=== PATIENT | male | born 2000 | race Two or more races ===

== ENCOUNTER 2020-09-09 08:09 | Emergency (ER) | payer MEDICAID ==
[~2020-09-09] VITALS: Ht 160 cm; Wt 64.9 kg
[2020-09-09 08:12] VITALS: BP 146/76
--- NOTE | 2020-09-09 08:15 | NUR ---
SEEN AND EXAMINED BY
--- NOTE | 2020-09-09 08:25 | NUR ---
LOSS MITIGATION SPECIALIST AT BEDSIDE FOR XRAY.
[2020-09-09] MEDS ORDERED: IBUPROFEN 600 MG TABLET ONE (09:29)
[2020-09-09] MEDS ORDERED: IBUPROFEN 600 MG TABLET PO ONE (09:30)
--- NOTE | 2020-09-09 09:31 | NUR ---
Patient discharged to home in stable condition. Written and verbal after care instructions given. Patient verbalizes understanding of instruction.
== END 2020-09-09 09:32 | disposition home or self-care (01) ==
LOC: ER 08:13
DX: S29.012A Strain of muscle and tendon of back wall of thorax, initial encounter (principal); M54.2 Cervicalgia; M25.512 Pain in left shoulder; V32.5XXA Driver of three-wheeled motor vehicle injured in collision with two- or three-wheeled motor vehicle in traffic accident, initial encounter; Y93.89 Activity, other specified; Y92.413 State road as the place of occurrence of the external cause; Y99.8 Other external cause status
CPT/HCPCS: 71045-TC; 72050-TC; 73030-TC